=== PATIENT | male | born 1955 | race Caucasian/White ===

== ENCOUNTER 2018-11-02 11:46 | Day surgery (SDC) | payer OTHER ==
[~2018-11-02] VITALS: Ht 190.5 cm; Wt 296.0 kg
[~2018-11-02 11:46] MED LIST: ACET325 PO; AMLO5 PO; ASPI81CH PO; Colace100 MG PO; FAMO20 PO; Isosorbide Dini30 MG PO; METO100ER PO; Metformin HCl1000 MG PO; NITR.4SL SL; OMEP20ER; OXYC5 PO; Simvastatin20 MG PO; TANZEUM30 MG/0.5 SQ; TOUJEO SOL300 UNIT/1 SQ; Ventolin5 MG/1 ML INH; Zestril40 MG
[2018-11-02] MEDS ORDERED: TRULICITY0.75 MG/0. (12:11)
[2018-11-02] MEDS ORDERED: BASAGLAR K100 UNIT/1 (12:11)
== END 2018-11-02 13:54 | disposition home or self-care (01) ==
LOC: ORSCSDS 11:46
PROVIDERS: Internal Medicine Gastroenterology
PROC: 0DBL8ZX Excision of Transverse Colon, Via Natural or Artificial Opening Endoscopic, Diagnostic (ICD-10-PCS; principal; 2018-11-02 13:15)
PROC: 0DBH8ZX Excision of Cecum, Via Natural or Artificial Opening Endoscopic, Diagnostic (ICD-10-PCS; principal; 2018-11-02 13:15)
DX: Z12.11 Encounter for screening for malignant neoplasm of colon (principal); D12.3 Benign neoplasm of transverse colon; Z80.0 Family history of malignant neoplasm of digestive organs; I10 Essential (primary) hypertension; E11.9 Type 2 diabetes mellitus without complications; F17.210 Nicotine dependence, cigarettes, uncomplicated; E66.01 Morbid (severe) obesity due to excess calories; Z68.38 Body mass index [BMI] 38.0-38.9, adult; Z79.82 Long term (current) use of aspirin; Z79.84 Long term (current) use of oral hypoglycemic drugs; Z79.899 Other long term (current) drug therapy
CPT/HCPCS: 82947; 88305; J2704; J7120

== ENCOUNTER 2025-02-21 15:55 | Inpatient (IN) | payer OTHER ==
[2025-02-21] VITALS (15 sets, daily range): BP systolic 135–150; BP diastolic 77–129
[~2025-02-21] VITALS: Ht 190.5 cm; Wt 120.0 kg
[~2025-02-21 15:55] MED LIST changes: +BASAGLAR K100 UNIT/1; +Heparin Sodium,Porcine 5,000 UNIT/0.5 ML SDV SC ONE; +METF500 PO; +Magnesium Sulfate 500 MG / ML 2ML Vial IV ONE; -Metformin HCl1000 MG PO; -TOUJEO SOL300 UNIT/1 SQ; +TOUJEO SOL300 UNIT/2 SC; +TRULICITY0.75 MG/0.
[2025-02-21] MEDS ORDERED: Heparin Sodium 5000 Units/ML 1ML MDV IV ONE (16:10)
[2025-02-21] MEDS ORDERED: NS 250 ML IV ONE (16:17)
[2025-02-21] MEDS ORDERED: Nitroglycerin 2 MG/20 ML BTL ONE (16:17)
[2025-02-21] MEDS ORDERED: Verapamil HCL 2.5 MG/ML 2ML Injection ONE (16:17)
[2025-02-21] MEDS ORDERED: Heparin Sodium 1000 Units/ML 10ML MDV ONE ×2 (16:17→16:18)
[2025-02-21] MEDS ORDERED: NS 1,000 ML IV ONE ×2 (16:17→16:18)
[2025-02-21 16:20] LABS: Calcium, Ionized (POC) 1.10 mmol/L (1.10-1.46); Chloride (POC) 103 mmol/L (98-108); Creatinine (POC) 0.9 mg/dL (0.8-1.3); Glucose (ISTAT POC) 166 mg/dL (70-99); Hematocrit (POC) 51.0 % (41.0-53.0); Hemoglobin (POC) 17.3 g/dL (13.5-17.5); Potassium (POC) 4.1 mmol/L (3.5-5.5); Sodium (POC) 140 mmol/L (135-148); Total CO2 (POC) 24 mmol/L (21-32)
[2025-02-21 16:29] LABS: BASOPHILS ABSOLUTE AUTO 0.06 K/mm3 (0.00-0.23); BASOPHILS PERCENT AUTO 1 % (0-2); EOSINOPHILS ABSOLUTE AUTO 0.29 K/mm3 (0.00-0.68); EOSINOPHILS PERCENT AUTO 3 % (0-6); Hematocrit 49.5 % (37.0-53.0); Hemoglobin 17.8 g/dL (13.5-17.5); IMMATURE GRAN ABSOLUTE AUTO 0.03 K/mm3 (0.00-0.10); IMMATURE GRAN PERCENT AUTO 0 % (0-1); LYMPHOCYTES ABSOLUTE AUTO 2.49 K/mm3 (0.84-5.20); LYMPHOCYTES PERCENT AUTO 27 % (21-46); MONOCYTES ABSOLUTE AUTO 0.68 K/mm3 (0.16-1.47); MONOCYTES PERCENT AUTO 7 % (4-13); Mean Corpuscular HGB Conc 36.0 g/dL (31.5-36.5); Mean Corpuscular Volume 87 fL (80-100); NEUTROPHILS ABSOLUTE AUTO 5.85 K/mm3 (1.96-9.15); NEUTROPHILS PERCENT AUTO 62 % (41-73); NRBC ABSOLUTE 0.00 K/mm3 (0.00-0.02); NRBC Auto 0.0 /100 WBC (0.0-0.2); Platelet Count 146 K/mm3 (150-400); RDW Coefficient Variation 13.3 % (11.7-14.2); RDW Standard Deviation 42.4 fL (35.1-46.3)
[2025-02-21] MEDS ORDERED: Ondansetron HCl 2 MG / ML 2ML Vial IV PRN (16:50)
[2025-02-21] MEDS ORDERED: Midazolam HCl 1MG / ML 2ML Vial ONE (16:51)
[2025-02-21] MEDS ORDERED: FentaNYL Citrate 50 MCG/ML 2 ML Injection ONE (16:51)
[2025-02-21 17:01] LABS: Alanine Aminotransfer (ALT/SGP 39 U/L (12-78); Albumin, Blood 4.2 g/dL (3.4-5.0); Albumin/Globulin Ratio 1.2 (0.8-1.8); Anion Gap 10 mmol/L (3-11); Aspartate Aminotrans (AST/SGOT 34 U/L (12-37); Bilirubin, Total 0.6 mg/dL (0.1-1.0); Blood Urea Nitrogen 12 mg/dL (8-24); CHOL/HDL RATIO 4.3; CO2, Blood 25 mmol/L (21-32); Calcium, Blood 8.7 mg/dL (8.5-10.1); Chloride, Blood 105 mmol/L (98-108); Cholesterol 173 mg/dL (50-200); Creatinine, Blood 0.88 mg/dL (0.60-1.20); Globulin, Blood 3.4 g/dL (2.2-4.0); Glucose, Blood 182 mg/dL (70-99); HDL Cholesterol 40 mg/dL (>39); LDL/HDL RATIO Unable to Calculate; Low Density Lipoprotein Chol Unable to Calculate mg/dL (0-110); Potassium, Blood 3.4 mmol/L (3.5-5.5); Sodium, Blood 137 mmol/L (136-145); Total Protein, Blood 7.6 g/dL (6.4-8.2); Triglycerides 588 mg/dL (30-160); Very Low Density Lipoprot Chol Unable to Calculate mg/dL (6-32)
[2025-02-21 17:19] LABS: Magnesium, Blood 0.6 mg/dL (1.6-2.4)
[2025-02-21] MEDS ORDERED: NS 100 ML IV ONE (17:22)
[2025-02-21] MEDS ORDERED: NS 1,000 ML IV SCH ×2 (18:30)
--- NOTE | 2025-02-21 18:54 | NUR ---
ADMIT PT ARRIVED TO ICU 14 VIA BED. PT ALERT AND ORIENTED. L RADIAL SITE IS C/D/I, SOFT, NO HEMATOMA. L GROIN SITE IS C/D/I, SOFT AND NO HEMATOMA WELL, SM AMT OF BRUISING RIGHT UNDER PUNCTURE SITE. PT EDUCATED ON ACTIVITY RESTRICTIONS FOR HIS LEG AND WRIST. PT VERBALIZES UNDERSTANDING. WHILE LAYING FLAT ON RA, PT'S SPO2 87%, PLACED ON OXYGEN VIA NC AND HAD TO TITRATE UP TO 4L TO GET SPO2 ABOVE 90%. DR. CARDONA CAME TO THE BEDSIDE AND UPDATED PT.
[2025-02-21] MEDS ORDERED: FISH OIL 1,2001 EAC4 PO (20:52)
[2025-02-21] MEDS ORDERED: GENICIN500 M1 PO (20:53)
[2025-02-21] MEDS ORDERED: JARDIANCE25 MG PO (20:56)
[2025-02-21] MEDS ORDERED: OMEP20ER PO (20:57)
[2025-02-21] MEDS ORDERED: LOSA50 PO (20:59)
[2025-02-21] MEDS ORDERED: Insulin Human Lispro 100 Units/ML 3ML Syringe SC SCH (21:00)
[2025-02-21] MEDS ORDERED: BASAGLAR K100 UNIT/3 SC (21:00)
[2025-02-21] MEDS ORDERED: Insulin Glargine,Hum.Rec.Anlog 100 UNIT/ML 3MLSYR SC SCH (21:00)
[2025-02-22] VITALS (17 sets, daily range): BP systolic 108–141; BP diastolic 63–117
[2025-02-22 03:53] LABS: BASOPHILS ABSOLUTE AUTO 0.07 K/mm3 (0.00-0.23); BASOPHILS PERCENT AUTO 1 % (0-2); EOSINOPHILS ABSOLUTE AUTO 0.14 K/mm3 (0.00-0.68); EOSINOPHILS PERCENT AUTO 1 % (0-6); Hematocrit 46.4 % (37.0-53.0); Hemoglobin 16.6 g/dL (13.5-17.5); IMMATURE GRAN ABSOLUTE AUTO 0.04 K/mm3 (0.00-0.10); IMMATURE GRAN PERCENT AUTO 0 % (0-1); LYMPHOCYTES ABSOLUTE AUTO 1.79 K/mm3 (0.84-5.20); LYMPHOCYTES PERCENT AUTO 15 % (21-46); MONOCYTES ABSOLUTE AUTO 0.79 K/mm3 (0.16-1.47); MONOCYTES PERCENT AUTO 7 % (4-13); Mean Corpuscular HGB Conc 35.8 g/dL (31.5-36.5); Mean Corpuscular Volume 86 fL (80-100); NEUTROPHILS ABSOLUTE AUTO 8.94 K/mm3 (1.96-9.15); NEUTROPHILS PERCENT AUTO 76 % (41-73); NRBC ABSOLUTE 0.00 K/mm3 (0.00-0.02); NRBC Auto 0.0 /100 WBC (0.0-0.2); Platelet Count 138 K/mm3 (150-400); RDW Coefficient Variation 13.2 % (11.7-14.2); RDW Standard Deviation 41.1 fL (35.1-46.3)
[2025-02-22] MEDS ORDERED: Albuterol 2.5 MG/3 ML VIAL INH PRN (04:20)
[2025-02-22] MEDS ORDERED: Ipratropium/Albuterol SulF 2.5-0.5MG/3 ML Amp INH SCH (04:20)
--- NOTE | 2025-02-22 06:34 | NUR ---
SHIFT SUMMARY PATIENT ALERT AND ORIENTED X4 THROUGH THE NIGHT. WAS ORIGINALLY ON 2-3L NC WHILE LAYING FLAT AND SLEEPING TO MAINTAIN SP02 >93, AROUND APPROX 0300 OXYGEN DEMANDS STARTED INCREASING, PATIENT STATED HE FELT SOB. LUNG SOUNDS WITH AN EXPIRATORY WHEEZE BUT OTHERWISE CLEAR. OXYGEN INCREASED TO 9L VIA HI-FLOW NC, SP02 92%. CALLED HOSPITALIST, BNP, CHEST X-RAY, BREATHING TREATMENT AND CPAP ORDERED WELL FLUIDS STOPPED. ONCE X-RAY WAS DONE HOSPITALIST ORDERED LASIX TO BE GIVEN. PATIENT CURRENTLY WEARING CPAP SP02 97%. HR SR 79 WITH FREQUENT PVCs. BP STABLE, PATIENT STILL RATES CP 1/10 AND DESCRIBES IT AN ACHE. MORNING EKG DONE AND IN THE CHART. PATIENT ABLE TO USE URINAL. LEFT RADIAL AND RIGHT GROIN INCISION SITES WNL WITH DRESSINGS IN PLACE.
[2025-02-22 06:37] LABS: Alanine Aminotransfer (ALT/SGP 51.0 U/L (12-78); Albumin, Blood 3.6 g/dL (3.4-5.0); Albumin/Globulin Ratio 1.2 (0.8-1.8); Anion Gap 12.0 mmol/L (3-11); Aspartate Aminotrans (AST/SGOT 238.0 U/L (12-37); Bilirubin, Total 0.8 mg/dL (0.1-1.0); Blood Urea Nitrogen 9.0 mg/dL (8-24); CO2, Blood 22.0 mmol/L (21-32); Calcium, Blood 8.3 mg/dL (8.5-10.1); Chloride, Blood 108.0 mmol/L (98-108); Creatinine, Blood 0.62 mg/dL (0.60-1.20); Globulin, Blood 2.9 g/dL (2.2-4.0); Glucose, Blood 144.0 mg/dL (70-99); Magnesium, Blood 1.0 mg/dL (1.6-2.4); Potassium, Blood 3.4 mmol/L (3.5-5.5); Sodium, Blood 139.0 mmol/L (136-145); Total Protein, Blood 6.5 g/dL (6.4-8.2)
[2025-02-22] MEDS ORDERED: Magnesium Sulf 2 GM/Water 50ML 50 ML IV ONE (06:50)
--- NOTE | 2025-02-22 17:43 | NUR ---
SHIFT SUMMARY PT HAS BEEN ALERT AND ORIENTED THROUGHOUT THE SHIFT. HE DENIES CHEST PAIN. HE AMBULATED AROUND THE UNIT AND HAS BEEN UP TO THE CHAIR SEVERAL TIMES. HIS GROIN SITE AND RADIAL SITE ARE BOTH SOFT WITH NO HEMATOMAS. LUNGS ARE CLEAR, RA, SR. VOIDING USING THE URINAL. EATING ALL OF HIS MEALS.
[2025-02-23] VITALS: BP 97/71
[2025-02-23 03:40] LABS: BASOPHILS ABSOLUTE AUTO 0.05 K/mm3 (0.00-0.23); BASOPHILS PERCENT AUTO 0 % (0-2); EOSINOPHILS ABSOLUTE AUTO 0.10 K/mm3 (0.00-0.68); EOSINOPHILS PERCENT AUTO 1 % (0-6); Hematocrit 44.4 % (37.0-53.0); Hemoglobin 15.8 g/dL (13.5-17.5); IMMATURE GRAN ABSOLUTE AUTO 0.02 K/mm3 (0.00-0.10); IMMATURE GRAN PERCENT AUTO 0 % (0-1); LYMPHOCYTES ABSOLUTE AUTO 1.43 K/mm3 (0.84-5.20); LYMPHOCYTES PERCENT AUTO 13 % (21-46); MONOCYTES ABSOLUTE AUTO 0.85 K/mm3 (0.16-1.47); MONOCYTES PERCENT AUTO 7 % (4-13); Mean Corpuscular HGB Conc 35.6 g/dL (31.5-36.5); Mean Corpuscular Volume 87 fL (80-100); NEUTROPHILS ABSOLUTE AUTO 8.98 K/mm3 (1.96-9.15); NEUTROPHILS PERCENT AUTO 79 % (41-73); NRBC ABSOLUTE 0.00 K/mm3 (0.00-0.02); NRBC Auto 0.0 /100 WBC (0.0-0.2); Platelet Count 109 K/mm3 (150-400); RDW Coefficient Variation 13.1 % (11.7-14.2); RDW Standard Deviation 41.8 fL (35.1-46.3)
[2025-02-23 03:59] LABS: Alanine Aminotransfer (ALT/SGP 38.0 U/L (12-78); Albumin, Blood 3.6 g/dL (3.4-5.0); Albumin/Globulin Ratio 1.2 (0.8-1.8); Anion Gap 9.0 mmol/L (3-11); Aspartate Aminotrans (AST/SGOT 99.0 U/L (12-37); Bilirubin, Total 1.3 mg/dL (0.1-1.0); Blood Urea Nitrogen 11.0 mg/dL (8-24); CO2, Blood 26.0 mmol/L (21-32); Calcium, Blood 8.1 mg/dL (8.5-10.1); Chloride, Blood 106.0 mmol/L (98-108); Creatinine, Blood 0.69 mg/dL (0.60-1.20); Globulin, Blood 3.0 g/dL (2.2-4.0); Glucose, Blood 139.0 mg/dL (70-99); Magnesium, Blood 1.6 mg/dL (1.6-2.4); Potassium, Blood 3.5 mmol/L (3.5-5.5); Sodium, Blood 137.0 mmol/L (136-145); Total Protein, Blood 6.6 g/dL (6.4-8.2)
[2025-02-23 04:00] VITALS: BP 141/83
--- NOTE | 2025-02-23 05:57 | NUR ---
SHIFT SUMMARY A/O X4, ANSWERS APPROP, ABLE TO MAKE NEEDS KNOWN, OOB FOR TOILETING WITH ONLY SB ASSIST WITH LINES. SINUS RATE 80'S TO 100'S, BP STABLE, DENIED CHEST PAIN OR DISCOMFORT T/O NIGHT, ANXIOUS TO GO HOME. RIGHT GROIN AND LEFT RADIAL CATH SITES BENIGN, DRSGS DRY AND INTACT. NC AT 5 L WHILE SLEEPING TO KEEP O2SAT>94%. WILL UPDATE DAY RN WITH ALL OUTSTANDING ISSUES AND PROBLEMS TO DATE.
[2025-02-23 07:58] VITALS: BP 132/87
--- NOTE | 2025-02-23 09:29 | NUR ---
AM NOTE... ASSUMED CARE OF PT AT 0700, PT IS A&Ox4 AND IND IN THE ROOM. PT IS IN SR IN THE 80'S BP STABLE. PT DENIES CHEST PAIN/PRESSURE OR SOB. PT USES 2-5L NC WHILE SLEEPING PER NOC SHIFT RN REPORT. PT'S LEFT RADIAL AND RIGHT GROIN SITES ARE STABLE. PLANS TO D/C HOME TODAY.
[2025-02-23 11:36] VITALS: BP 123/81
[2025-02-23] MEDS ORDERED: CLOP75 PO (13:22)
[2025-02-23] MEDS ORDERED: MAGNESIUM OXID500 MG PO (13:23)
--- NOTE | 2025-02-23 14:15 | NUR ---
DISCHARGE SUMMARY: THROUGHOUT MORNING, PATIENT DENIED CHEST PAIN, SHORTNESS OF BREATH OR OTHER CONCERNING SIGNS OR SYMPTOMS. PATIENT DENIED DISCOMFORT. PATIENT TOLERATING PO INTAKE WITHOUT NAUSEA. PATIENT ACTIVE IN THE ROOM. NO SHORTNESS OF BREATH AND/OR DIZZINESS WITH AMBULATION. VITALS STABLE WITH SBP 120-140S. MAPS >65. HR IN THE 70-80'S. PER CARDIOLOGY AND HOSPITALIST, PATIENT READY FOR DISCHARGE. DISCHARGE RX FAXED TO [facility] PER PATIENT REQUEST. DISCHARGE EDUCATION AND INSTRUCTIONS PROVIDED TO THE PATIENT. ALL QUESTIONS AND CONCERNS ADDRESSED. STENT CARD MISSING FROM CHART AND ROOM. DISCUSSED WITH HEART CENTER. A NEW CARD (WITHOUT LOT NUMBER) WAS CREATED FOR THE PATIENT AND PROVIDED TO THE PATIENT. PATIENT REFUSED WHEELCHAIR ESCORT. PATIENT DISCHARGED WITH BROTHER AND FRIEND. PATIENT STEADY ON HIS FEET. PATIENT STABLE AT TIME OF DISCHARGE.
== END 2025-02-23 14:20 | disposition home or self-care (01) | DRG 322 ==
LOC: ER 15:55 → ICUE 16:04
PROVIDERS: Emergency Medicine; ADMIT Family Medicine
PROC: 027034Z Dilation of Coronary Artery, One Artery with Drug-eluting Intraluminal Device, Percutaneous Approach (ICD-10-PCS; principal; 2025-02-21)
PROC: B2111ZZ Fluoroscopy of Multiple Coronary Arteries using Low Osmolar Contrast (ICD-10-PCS; 2025-02-21)
PROC: B2131ZZ Fluoroscopy of Multiple Coronary Artery Bypass Grafts using Low Osmolar Contrast (ICD-10-PCS; 2025-02-21)
PROC: B2181ZZ Fluoroscopy of Left Internal Mammary Bypass Graft using Low Osmolar Contrast (ICD-10-PCS; 2025-02-21)
DX: I21.29 ST elevation (STEMI) myocardial infarction involving other sites (principal); I25.810 Atherosclerosis of coronary artery bypass graft(s) without angina pectoris; I25.10 Atherosclerotic heart disease of native coronary artery without angina pectoris; E11.9 Type 2 diabetes mellitus without complications; K21.9 Gastro-esophageal reflux disease without esophagitis; E78.5 Hyperlipidemia, unspecified; E87.6 Hypokalemia; E83.42 Hypomagnesemia; I10 Essential (primary) hypertension; E66.9 Obesity, unspecified; Z79.82 Long term (current) use of aspirin; Z79.4 Long term (current) use of insulin; Z79.84 Long term (current) use of oral hypoglycemic drugs; Z79.85 Long-term (current) use of injectable non-insulin antidiabetic drugs; Z72.0 Tobacco use; I25.2 Old myocardial infarction; Z68.34 Body mass index [BMI] 34.0-34.9, adult
CPT/HCPCS: 36415; 71045; 76937; 80047; 80053; 80061; 82947; 83735; 83880; 84484; 85014; 85025; 85347; 86850; 86900; 86901; 93005; 93010; 93455; 94640; 94660; 94664; 94762; 99152; 99153; 99285-25; A9270; C1725; C1760; C1769; C1874; C1887; C1894; C8929; C9606; J1644; J1938; J2250; J3010; J3246; J3475; J7030; J7050; Q9957; Q9967

== ENCOUNTER 2025-02-26 18:48 | Inpatient (IN) | payer OTHER ==
[~2025-02-26] VITALS: Ht 190.5 cm; Wt 118.8 kg
[~2025-02-26 18:48] MED LIST changes: +BASAGLAR K100 UNIT/3 SC; +CLOP75 PO; +FISH OIL 1,2001 EAC4 PO; +GENICIN500 M1 PO; -Heparin Sodium,Porcine 5,000 UNIT/0.5 ML SDV SC ONE; +JARDIANCE25 MG PO; +LOSA50 PO; +MAGNESIUM OXID500 MG PO; -Magnesium Sulfate 500 MG / ML 2ML Vial IV ONE; +OMEP20ER PO
[2025-02-26 19:24] LABS: BASOPHILS ABSOLUTE AUTO 0.05 K/mm3 (0.00-0.23); BASOPHILS PERCENT AUTO 0 % (0-2); EOSINOPHILS ABSOLUTE AUTO 0.50 K/mm3 (0.00-0.68); EOSINOPHILS PERCENT AUTO 5 % (0-6); Hematocrit 50.8 % (37.0-53.0); Hemoglobin 17.6 g/dL (13.5-17.5); IMMATURE GRAN ABSOLUTE AUTO 0.04 K/mm3 (0.00-0.10); IMMATURE GRAN PERCENT AUTO 0 % (0-1); LYMPHOCYTES ABSOLUTE AUTO 1.61 K/mm3 (0.84-5.20); LYMPHOCYTES PERCENT AUTO 15 % (21-46); MONOCYTES ABSOLUTE AUTO 0.58 K/mm3 (0.16-1.47); MONOCYTES PERCENT AUTO 5 % (4-13); Mean Corpuscular HGB Conc 34.6 g/dL (31.5-36.5); Mean Corpuscular Volume 89 fL (80-100); NEUTROPHILS ABSOLUTE AUTO 8.35 K/mm3 (1.96-9.15); NEUTROPHILS PERCENT AUTO 75 % (41-73); NRBC ABSOLUTE 0.00 K/mm3 (0.00-0.02); NRBC Auto 0.0 /100 WBC (0.0-0.2); Platelet Count 186 K/mm3 (150-400); RDW Coefficient Variation 13.2 % (11.7-14.2); RDW Standard Deviation 42.9 fL (35.1-46.3)
[2025-02-26 19:34] LABS: Alanine Aminotransfer (ALT/SGP 37.0 U/L (12-78); Albumin, Blood 3.9 g/dL (3.4-5.0); Albumin/Globulin Ratio 0.9 (0.8-1.8); Anion Gap 8.0 mmol/L (3-11); Aspartate Aminotrans (AST/SGOT 55.0 U/L (12-37); Bilirubin, Total 0.8 mg/dL (0.1-1.0); Blood Urea Nitrogen 13.0 mg/dL (8-24); CO2, Blood 23.0 mmol/L (21-32); Calcium, Blood 9.5 mg/dL (8.5-10.1); Chloride, Blood 107.0 mmol/L (98-108); Creatinine, Blood 0.78 mg/dL (0.60-1.20); Globulin, Blood 4.4 g/dL (2.2-4.0); Glucose, Blood 243.0 mg/dL (70-99); Potassium, Blood 5.0 mmol/L (3.5-5.5); Sodium, Blood 133.0 mmol/L (136-145); Total Protein, Blood 8.3 g/dL (6.4-8.2)
[2025-02-26] MEDS ORDERED: Morphine Sulfate 4 MG/1 ML Injection IV ONE ×2 (20:45→23:00)
[2025-02-26] MEDS ORDERED: Ondansetron HCl 2 MG / ML 2ML Vial IV PRN (23:35)
[2025-02-26] MEDS ORDERED: Morphine Sulfate 4 MG/1 ML Injection IV PRN (23:35)
[2025-02-26] MEDS ORDERED: Naloxone HCl 0.4MG / ML 1ML Vial IV PRN (23:35)
[2025-02-27] VITALS (32 sets, daily range): BP systolic 103–176; BP diastolic 73–115
[2025-02-27 01:03] LABS: Anti-Xa UFH, PHA Monitoring <0.10 IU/mL; Prothrombin Time Results 11.3 Sec (9.7-11.5)
[2025-02-27] MEDS ORDERED: Dose Adjust by Pharmacy XX STA ×2 (01:16→09:07)
[2025-02-27] MEDS ORDERED: Heparin Sodium,Porcine/0.5 NS 500 ML IV SCH (01:20)
[2025-02-27] MEDS ORDERED: Heparin Sodium 5000 Units/ML 1ML MDV IV ONE (01:20)
[2025-02-27 04:33] LABS: BASOPHILS ABSOLUTE AUTO 0.06 K/mm3 (0.00-0.23); BASOPHILS PERCENT AUTO 1 % (0-2); EOSINOPHILS ABSOLUTE AUTO 0.42 K/mm3 (0.00-0.68); EOSINOPHILS PERCENT AUTO 4 % (0-6); Hematocrit 48.0 % (37.0-53.0); Hemoglobin 16.9 g/dL (13.5-17.5); IMMATURE GRAN ABSOLUTE AUTO 0.04 K/mm3 (0.00-0.10); IMMATURE GRAN PERCENT AUTO 0 % (0-1); LYMPHOCYTES ABSOLUTE AUTO 1.69 K/mm3 (0.84-5.20); LYMPHOCYTES PERCENT AUTO 17 % (21-46); MONOCYTES ABSOLUTE AUTO 0.71 K/mm3 (0.16-1.47); MONOCYTES PERCENT AUTO 7 % (4-13); Mean Corpuscular HGB Conc 35.2 g/dL (31.5-36.5); Mean Corpuscular Volume 89 fL (80-100); NEUTROPHILS ABSOLUTE AUTO 7.22 K/mm3 (1.96-9.15); NEUTROPHILS PERCENT AUTO 71 % (41-73); NRBC ABSOLUTE 0.00 K/mm3 (0.00-0.02); NRBC Auto 0.0 /100 WBC (0.0-0.2); Platelet Count 154 K/mm3 (150-400); RDW Coefficient Variation 13.2 % (11.7-14.2); RDW Standard Deviation 43.3 fL (35.1-46.3)
[2025-02-27 04:55] LABS: Magnesium, Blood 1.6 mg/dL (1.6-2.4)
[2025-02-27 04:56] LABS: Alanine Aminotransfer (ALT/SGP 34.0 U/L (12-78); Albumin, Blood 3.6 g/dL (3.4-5.0); Albumin/Globulin Ratio 1.0 (0.8-1.8); Anion Gap 9.0 mmol/L (3-11); Aspartate Aminotrans (AST/SGOT 103.0 U/L (12-37); Bilirubin, Total 0.6 mg/dL (0.1-1.0); Blood Urea Nitrogen 13.0 mg/dL (8-24); CO2, Blood 24.0 mmol/L (21-32); Calcium, Blood 9.3 mg/dL (8.5-10.1); Chloride, Blood 110.0 mmol/L (98-108); Creatinine, Blood 0.71 mg/dL (0.60-1.20); Globulin, Blood 3.5 g/dL (2.2-4.0); Glucose, Blood 200.0 mg/dL (70-99); Potassium, Blood 4.2 mmol/L (3.5-5.5); Sodium, Blood 139.0 mmol/L (136-145); Total Protein, Blood 7.1 g/dL (6.4-8.2)
--- NOTE | 2025-02-27 05:39 | NUR ---
PT HAVING INCREASED CHEST PAIN/PRESSURE AND DYSPNEA. PT IS BECOMING MORE DIAPHORETIC. PT RATED CHEST PAIN 7/10. NTG GIVEN SL X2. MINOR IMPROVEMENT TO CHEST PRESSURE, DYSPNEA STILL PRESENT. O2 SAT DECREASING TO 88-89% ON 8L BY OXIMASK, O2 INCREASED TO 11L SATING 92%. 4MG MORPHINE GIVEN FOR CHEST PAIN. CHEST PAIN IMPROVED TO 2/10 AND DYSPNEA IMPROVING. REPEAT EKG DONE. LUNG SOUNDS IN BASES CHANGED FROM DIM TO DIM AND WHEEZING. CALL PLACED TO DR. AMADOR REGARDING PT CHEST PAIN AND INCREASED O2 DEMAND. DR AMADOR TO BEDSIDE TO EVAL PAIN. NO NEW ORDERS, CONTINUE TO MONITOR.
[2025-02-27] MEDS ORDERED: Verapamil HCL 2.5 MG/ML 2ML Injection ONE (09:26)
[2025-02-27] MEDS ORDERED: Heparin Sodium 1000 Units/ML 10ML MDV ONE (09:26)
[2025-02-27] MEDS ORDERED: NS 250 ML IV ONE (09:26)
[2025-02-27] MEDS ORDERED: NS 1,000 ML IV ONE ×2 (09:26→09:34)
[2025-02-27] MEDS ORDERED: Nitroglycerin 2 MG/20 ML BTL ONE (09:27)
--- NOTE | 2025-02-27 09:43 | NUR ---
am note this rn assumed care at 0700. vital signs stable. tele sinus rhythm 80s. spo2 >90% on 8l oxymask and this rn has titrated down to 2l osymask with spo2 >90%. patient is alert and oriented x4. neuro is intact. perrla. patient is able to make needs known and uses call light appropriately. patient denies pain or shortness of breath. patient reports chest pain rated at 2 and describes it as a "constant pressure". patient medicated with morphine per emar and upon reassessment patient denies having chest pain/pressure. patient lung sounds clear upper lobes and fine dim crackles in bilateral lower lobes. see shift assessment for further detials. dreiling in to see patient at 0800 and plan is for patient to go back to microbiology lab assistant for angio this morning.
--- NOTE | 2025-02-27 09:53 | NUR ---
update patient left for geophysical laboratory supervisor at [phone]
[2025-02-27] MEDS ORDERED: FentaNYL Citrate 50 MCG/ML 2 ML Injection ONE (09:58)
[2025-02-27] MEDS ORDERED: Midazolam HCl 1MG / ML 2ML Vial ONE (09:59)
[2025-02-27] MEDS ORDERED: NS 1,000 ML IV SCH (11:20)
--- NOTE | 2025-02-27 12:09 | NUR ---
update patient returned from sleep lab technologist approx 1115. vital signs stable upon return and tele sinus rhythm. patient has a right radail site with tr band in place at 1100 with 11cc in it and will start to delfate air 3 hours post band placement. right radail site is soft nontender, no bleeding or hematoma present. patient educated on not using that right arm and to pretend it is broken. patient verbalized understanding to this rn. patient had an episode of vomitting clear lquid vomit while this rn was in the room. heparin stopped and patient started prasugrel and received loading dose in sleep lab technologist per report from sleep lab technologist nurse.
[2025-02-27] MEDS ORDERED: Labetalol HCL 5 MG/ML 4ML Injection (Single Dose) ONE (15:04)
[2025-02-27] MEDS ORDERED: Labetalol HCL 5 MG/ML 4ML Injection (Single Dose) IV ONE ×2 (15:05→15:20)
--- NOTE | 2025-02-27 16:01 | NUR ---
rapid response at 1455- this rn in room doing iv and patient complaining of difficulty breathing and this rn increased oxygen to 10l high flow nasal cannula and increase head of bed. patient spo2 remains in the mid 80s and working to breath. this rn went out of room to get oxymask and additional help to place iv. oxymask in place and at 10l. allie rn in room placing iv while this rn went to get morphine and zofran. sarai with respiratory care in the hallway and this rn informed him of patient resirations in the high 20s, diaphoretic, and dusky face, and that patient appears in respiratory distress. sarai in the room manging oxygenation while this rn pulled medications. see respiratory care charting for detials in oxygenation. this rn was called by tele to inform of rhythm changes on tele, and this rn called janessa rn to call dr. kenney about rhythm changes and getting an ekg at this time. rapid response called at approx 1500. md kenney in the room at 1500. bipap brought into the room and while beging set up 4mg iv zofran given and then 4mg iv morphine given. patient placed on bipap and respirations improved and oxygenating into the mid 90s. blood pressure hypertesnive 176/115 md kenney order 40mg of lasix iv and 5mg of iv labetalol. blood pressure improved tO 139/96. after 5 mins patient blood pressure increase to 141/104 and additional dose of 5mg iv labetalol given. blood pressure improved and systolic in the 120-130s now. patient bipap settings 14/7 fio2 80% and respirations 20s. during this event patient heart rate increased to 140s-150s and was in afib. patient is now in sinus rhythm 90s. md rose notified by this rn. patient coloration is pink and pale and is on bipap resting at this time.
--- NOTE | 2025-02-27 16:20 | NUR ---
Upon responding to a rapid response, I went to the patient's room. I touched base with his brother who was trapped in the corner of the patient's room while life saving measures were being taken. The room was packed with the clinical team who worked briliantly and stabilized the patient. I performed some debriefing work with the brother as he talked through the events and how he was coping with it all. As I provided therapeutic listening and anxiety containment work with him he stated that because the patient is doing well that he would head home. I walked him to the parking lot and he continued talking about their lives growing up and about how thakful that he is that the patient is doing much better. I will continue to remain available.
[2025-02-27] MEDS ORDERED: Insulin Regular 100 UNIT/ML 10ML Vial SC SCH ×2 (16:30)
--- NOTE | 2025-02-27 16:42 | NUR ---
TR BAND tr band is fully deflated at 1640 and will remove in an hour. right radial site is soft nontender and no hematoma or bleeding
--- NOTE | 2025-02-27 17:46 | NUR ---
shift summary see previous notes for further detials. vitals remain stable. tele sinus rhythyn. no acute changes since previous notes
[2025-02-28] VITALS (11 sets, daily range): BP systolic 109–134; BP diastolic 62–91
[2025-02-28 04:42] LABS: BASOPHILS ABSOLUTE AUTO 0.06 K/mm3 (0.00-0.23); BASOPHILS PERCENT AUTO 1 % (0-2); EOSINOPHILS ABSOLUTE AUTO 0.20 K/mm3 (0.00-0.68); EOSINOPHILS PERCENT AUTO 2 % (0-6); Hematocrit 45.3 % (37.0-53.0); Hemoglobin 15.6 g/dL (13.5-17.5); IMMATURE GRAN ABSOLUTE AUTO 0.04 K/mm3 (0.00-0.10); IMMATURE GRAN PERCENT AUTO 0 % (0-1); LYMPHOCYTES ABSOLUTE AUTO 1.59 K/mm3 (0.84-5.20); LYMPHOCYTES PERCENT AUTO 15 % (21-46); MONOCYTES ABSOLUTE AUTO 0.99 K/mm3 (0.16-1.47); MONOCYTES PERCENT AUTO 9 % (4-13); Mean Corpuscular HGB Conc 34.4 g/dL (31.5-36.5); Mean Corpuscular Volume 90 fL (80-100); NEUTROPHILS ABSOLUTE AUTO 7.91 K/mm3 (1.96-9.15); NEUTROPHILS PERCENT AUTO 73 % (41-73); NRBC ABSOLUTE 0.00 K/mm3 (0.00-0.02); NRBC Auto 0.0 /100 WBC (0.0-0.2); Platelet Count 155 K/mm3 (150-400); RDW Coefficient Variation 13.4 % (11.7-14.2); RDW Standard Deviation 44.5 fL (35.1-46.3)
[2025-02-28 05:04] LABS: Magnesium, Blood 1.6 mg/dL (1.6-2.4)
[2025-02-28 05:05] LABS: Alanine Aminotransfer (ALT/SGP 42.0 U/L (12-78); Albumin, Blood 3.3 g/dL (3.4-5.0); Albumin/Globulin Ratio 0.9 (0.8-1.8); Anion Gap 6.0 mmol/L (3-11); Aspartate Aminotrans (AST/SGOT 141.0 U/L (12-37); Bilirubin, Total 0.8 mg/dL (0.1-1.0); Blood Urea Nitrogen 19.0 mg/dL (8-24); CO2, Blood 30.0 mmol/L (21-32); Calcium, Blood 8.8 mg/dL (8.5-10.1); Chloride, Blood 106.0 mmol/L (98-108); Creatinine, Blood 0.75 mg/dL (0.60-1.20); Globulin, Blood 3.5 g/dL (2.2-4.0); Glucose, Blood 149.0 mg/dL (70-99); Potassium, Blood 4.1 mmol/L (3.5-5.5); Sodium, Blood 138.0 mmol/L (136-145); Total Protein, Blood 6.8 g/dL (6.4-8.2)
--- NOTE | 2025-02-28 06:34 | NUR ---
PT STABLE THROUGHOUT SHIFT. NO C/O CHEST PAIN OR DYSPNEA. PT ON 4L O2 BY NC AND SATING WELL. VITAL SIGNS WNL. PT HAD GOOD URINARY OUTPUT. RT RADIAL SITE REMAINS CLOSED AND COVERED WITH TEGADERM W/O BRUISING OR HEMATOMA. GOOD PULSE AT RT RADIAL SITE.
[2025-02-28] MEDS ORDERED: Heparin Sodium,Porcine 5,000 UNIT/0.5 ML SDV SC SCH (08:30)
--- NOTE | 2025-02-28 18:36 | NUR ---
SHIFT SUMMARY: PT A&OX4. FOLLOWS COMMANDS AND MAKES NEEDS KNOWN TO STAFF. PT USED URINAL AT BEDSIDE BUT WAS ABLE TO GET UP AND TAKE A SHOWER WITHOUT ANY COMPLAINTS OF CP, PRESSURE, TIGHTNESS OR SOB. RADIAL SITE REDRESSED WITH A TEGADERM. SITE WNL.PT REMAINS SINUS ON THE MONITOR. VSS. MAP >65. PT TITRATED TO RA FROM 4LNC THIS AM AND HAS MAINTAINED O2 SATS >95% ALL DAY. NO SIGNIFICANT EVENTS HAPPENED DURING THIS SHIFT. WILL CONTINUE TO CARE FOR PT TILL END OF SHIFT.
[2025-03-01] VITALS (19 sets, daily range): BP systolic 104–138; BP diastolic 53–105
--- NOTE | 2025-03-01 04:26 | NUR ---
SHIFT SUMMARY. SHIFT HAS BEEN UNREMARKABLE. PT AOX4, PLEASANT, COOPERATIVE, ABLE TO MAKE NEEDS KNOWN. HAS BEEN ABLE TO REST COMFORTABLY THROUGHOUT MOST OF SHIFT. HAS DENIED PAIN THROUGHOUT SHIFT. VITALS STABLE. HAS CONTINUED TO RUN SINUS ON TELE. CALLS APPROPRIATELY FOR ASSISTANCE W/URINAL AND AMBULATION TO BATHROOM. RWR SITE REMAINS C/D/I W/ TEGADERM IN PLACE. BED LOCKED IN LOWEST POSITION. CALL LIGHT LEFT WITHIN REACH. CONTINUING TO MONITOR.
--- NOTE | 2025-03-01 06:28 | NUR ---
@ 0606, PT HR BEGAN TO RAPIDLY INCREASE TO 140s BEFORE 160s. PT ASYMPTOMATIC AT THE TIME, BLOOD PRESSURE 119/85 MAP OF 97. DENIES CHEST PAIN/PRESSURE, NAUSEA, DIZZINESS, ETC. EKG PERFORMED. REVIEWED W/ DR. AMADOR AND [facility] [employer]. APPEARS TO HAVE CONVERTED TO AFIB/AFLUTTER. HR HAS SINCE COME DOWN TO MAINTAIN IN THE 110s-130s RANGE. DR. AMADOR ORDERED 5 MG IV LOPRESSOR NOW FOR MANAGEMENT. ORDER INPUT, AWAITING VERIFICATION.
[2025-03-01] MEDS ORDERED: Metoprolol Tartrate 1 MG/ML 5 ML VIAL IV ONE (06:30)
[2025-03-01 06:50] LABS: BASOPHILS ABSOLUTE AUTO 0.05 K/mm3 (0.00-0.23); BASOPHILS PERCENT AUTO 1 % (0-2); EOSINOPHILS ABSOLUTE AUTO 0.21 K/mm3 (0.00-0.68); EOSINOPHILS PERCENT AUTO 2 % (0-6); Hematocrit 45.1 % (37.0-53.0); Hemoglobin 15.8 g/dL (13.5-17.5); IMMATURE GRAN ABSOLUTE AUTO 0.03 K/mm3 (0.00-0.10); IMMATURE GRAN PERCENT AUTO 0 % (0-1); LYMPHOCYTES ABSOLUTE AUTO 1.52 K/mm3 (0.84-5.20); LYMPHOCYTES PERCENT AUTO 17 % (21-46); MONOCYTES ABSOLUTE AUTO 0.83 K/mm3 (0.16-1.47); MONOCYTES PERCENT AUTO 9 % (4-13); Mean Corpuscular HGB Conc 35.0 g/dL (31.5-36.5); Mean Corpuscular Volume 88 fL (80-100); NEUTROPHILS ABSOLUTE AUTO 6.16 K/mm3 (1.96-9.15); NEUTROPHILS PERCENT AUTO 70 % (41-73); NRBC ABSOLUTE 0.00 K/mm3 (0.00-0.02); NRBC Auto 0.0 /100 WBC (0.0-0.2); Platelet Count 138 K/mm3 (150-400); RDW Coefficient Variation 12.9 % (11.7-14.2); RDW Standard Deviation 41.9 fL (35.1-46.3)
[2025-03-01 07:31] LABS: Anion Gap 11.0 mmol/L (3-11); Blood Urea Nitrogen 16.0 mg/dL (8-24); CO2, Blood 25.0 mmol/L (21-32); Calcium, Blood 8.7 mg/dL (8.5-10.1); Chloride, Blood 102.0 mmol/L (98-108); Creatinine, Blood 0.65 mg/dL (0.60-1.20); Glucose, Blood 170.0 mg/dL (70-99); Magnesium, Blood 1.7 mg/dL (1.6-2.4); Potassium, Blood 3.8 mmol/L (3.5-5.5); Sodium, Blood 134.0 mmol/L (136-145)
--- NOTE | 2025-03-01 09:10 | NUR ---
DR QUINTEROS FROM CARDIOLOGY IN ROOM TO ASSESS PATIENT. UPDATED HER THAT PATIENT WENT INTO AFIB APPROX 0600 TODAY, HOSPITALISTS WAS NOTIFIED. EKG SHOWN TO DR QUINTEROS. V/O FOR DIGOXIN 0.25MG IV SLOW PUSH X1 AND REPEAT IN 6 HOURS (HOLD FOR HR LESS THAN 60). DR SANDOVAL TO ROOM SHORTLY AFTERWARDS. PT MADE NPO AT THIS TIME. WILL START HEPARIN GTT, POSSIBLE CARDIOVERSION LATER TODAY. PATIENT DENIES CP, SOB, OR NAUSEA.
[2025-03-01 10:30] LABS: Anti-Xa UFH, PHA Monitoring <0.10 IU/mL; Prothrombin Time Results 12.3 Sec (9.7-11.5)
[2025-03-01] MEDS ORDERED: Dose Adjust by Pharmacy XX STA (10:48)
[2025-03-01] MEDS ORDERED: Heparin Sodium,Porcine/0.5 NS 500 ML IV SCH (10:50)
--- NOTE | 2025-03-01 12:00 | NUR ---
DR QUINTEROS BACK TO ROOM TO DISCUSS CARDIOVERSION WITH PATIENT. PATIENT AGREEABLE. PLAN TO CARDIOVERT PATIENT AROUND 1700 TODAY WHEN SKINNING MACHINE FEEDER AVAILABLE. REMAINS IN AFIB 110-130'S. HEPARIN INFUSING PER EMAR. DENIES SYMPTOMS. PATIENT KEPT NPO AT THIS TIME.
[2025-03-01] MEDS ORDERED: Magnesium Sulf 2 GM/Water 50ML 50 ML IV ONE (12:25)
[2025-03-01] MEDS ORDERED: FentaNYL Citrate 50 MCG/ML 2 ML Injection IV SCH (16:20)
[2025-03-01] MEDS ORDERED: Flumazenil 0.1 MG / ML 5ML Vial IV SCH (16:20)
[2025-03-01] MEDS ORDERED: Midazolam HCl 1MG / ML 2ML Vial IV SCH (16:20)
[2025-03-01] MEDS ORDERED: Naloxone HCl 0.4MG / ML 1ML Vial IV SCH (16:20)
[2025-03-01] MEDS ORDERED: NS 250 ML IV PRN (16:25)
--- NOTE | 2025-03-01 17:08 | NUR ---
PROCEDURE NOTE PATIENT SET UP FOR SYNCHRONIZED CARDIOVERSION. THIS RN (PRIMARY), AUBREE RN, OSVALDO RT, AND DR QUINTEROS IN ROOM. PATIENT ON SUPPLEMENTAL O2 WITH CO2 MONITORING. [address], DEFIB PADS IN PLACE, AMBU BAG AT BEDSIDE, SUCTION SET UP AND READY. NS INFUSING TKO. CONSENT SIGNED BY PROVIDER AND PATIENT, TIME OUT PERFORMED. PATIENT ADEQUATELY SEDATED AND TREATED FOR PAIN WITH TOTAL OF 3MG VERSED IVP AND 75MCG FENTANYL IVP. DEFIBRILLATOR SYNCHRONIZED AND SET TO 200J PER ORDER. PATIENT CLEARED AND SYNCHRONIZED CARDIOVERSION PERFORMED. EKG DONE AND PATIENT NOTED TO BE IN SR AT RATE OF 108BPM. SUPPORTIVE CARE PROVIDED PATIENT COMES OUT OF SEDATION. VSS.
--- NOTE | 2025-03-01 17:30 | NUR ---
SHIFT SUMMARY PATIENT WAS IN AFIB SINCE 0600 THIS MORING. CARDIOLOGY ROUNDED THIS MORNING. STARTED HEPARIN DRIP PER EMAR. PATIENT KEPT NPO. CARDIOVERSION DONE AT APPROX 1700. PATIENT RECOVERING NOW. THIS RN AT BEDSIDE. VSS. LS CTA. PATIENT ALERT AND FOLLOWING COMMANDS. NO DISTRESS NOTED. SR ON MONITOR AT 99 BPM. BIOX 95% ON 2L/MIN NC.
[2025-03-02 03:47] VITALS: BP 118/77
--- NOTE | 2025-03-02 04:22 | NUR ---
SHIFT SUMMARY. SHIFT HAS GONE WELL OVERALL. PT AOX4, PLEASANT, COOPERATIVE, ABLE TO MAKE NEEDS KNOWN. ABLE TO REST COMFORTABLY THROUGHOUT MOST OF SHIFT. VITALS HAVE REMAINED STABLE. HAS CONTINUED TO RUN SINUS THROUGHOUT SHIFT WITH RATE SETTLING IN THE 80s-100s RANGE PRIMARILY OVERNIGHT. HAS DENIED PAIN THROUGHOUT SHIFT. URINE OUTPUT CONSISTENT, CHARTED APPROPRIATELY. HAS REMAINED ON ROOM AIR THROUGHOUT SHIFT. BED LOCKED IN LOWEST POSITION. CALL LIGHT LEFT WITHIN REACH. CONTINUING TO MONITOR.
[2025-03-02 04:24] LABS: BASOPHILS ABSOLUTE AUTO 0.06 K/mm3 (0.00-0.23); BASOPHILS PERCENT AUTO 1 % (0-2); EOSINOPHILS ABSOLUTE AUTO 0.20 K/mm3 (0.00-0.68); EOSINOPHILS PERCENT AUTO 2 % (0-6); Hematocrit 44.2 % (37.0-53.0); Hemoglobin 15.2 g/dL (13.5-17.5); IMMATURE GRAN ABSOLUTE AUTO 0.01 K/mm3 (0.00-0.10); IMMATURE GRAN PERCENT AUTO 0 % (0-1); LYMPHOCYTES ABSOLUTE AUTO 1.51 K/mm3 (0.84-5.20); LYMPHOCYTES PERCENT AUTO 18 % (21-46); MONOCYTES ABSOLUTE AUTO 0.88 K/mm3 (0.16-1.47); MONOCYTES PERCENT AUTO 11 % (4-13); Mean Corpuscular HGB Conc 34.4 g/dL (31.5-36.5); Mean Corpuscular Volume 88 fL (80-100); NEUTROPHILS ABSOLUTE AUTO 5.66 K/mm3 (1.96-9.15); NEUTROPHILS PERCENT AUTO 68 % (41-73); NRBC ABSOLUTE 0.00 K/mm3 (0.00-0.02); NRBC Auto 0.0 /100 WBC (0.0-0.2); Platelet Count 136 K/mm3 (150-400); RDW Coefficient Variation 12.9 % (11.7-14.2); RDW Standard Deviation 42.1 fL (35.1-46.3)
[2025-03-02 04:45] LABS: Alanine Aminotransfer (ALT/SGP 28.0 U/L (12-78); Albumin, Blood 3.2 g/dL (3.4-5.0); Albumin/Globulin Ratio 0.9 (0.8-1.8); Anion Gap 9.0 mmol/L (3-11); Aspartate Aminotrans (AST/SGOT 47.0 U/L (12-37); Bilirubin, Total 1.0 mg/dL (0.1-1.0); Blood Urea Nitrogen 14.0 mg/dL (8-24); CO2, Blood 25.0 mmol/L (21-32); Calcium, Blood 8.3 mg/dL (8.5-10.1); Chloride, Blood 103.0 mmol/L (98-108); Creatinine, Blood 0.71 mg/dL (0.60-1.20); Globulin, Blood 3.4 g/dL (2.2-4.0); Glucose, Blood 171.0 mg/dL (70-99); Magnesium, Blood 2.0 mg/dL (1.6-2.4); Potassium, Blood 3.8 mmol/L (3.5-5.5); Sodium, Blood 133.0 mmol/L (136-145); Total Protein, Blood 6.6 g/dL (6.4-8.2)
[2025-03-02 07:45] VITALS: BP 133/95
[2025-03-02] MEDS ORDERED: PRASUGREL HCL10 MG PO (11:53)
[2025-03-02] MEDS ORDERED: ELIQUIS5 M2 PO (11:54)
[2025-03-02] MEDS ORDERED: ATOR80 PO (11:54)
[2025-03-02] MEDS ORDERED: SPIR25 PO (11:55)
--- NOTE | 2025-03-02 13:25 | NUR ---
DISCHARGE SUMMARY THOROUGHLY DISCUSSED DISCHARGE INSTRUCTIONS, MEDICATIONS, AND FOLLOW-UP APPOINTMENTS WITH PATIENT. ALSO DISCUSSED RETURN PRECAUTIONS. PATIENT VERBALIZES UNDERSTANDING. PATIENT IN NO DISTRESS. LS CLEAR, HR SINUS ON MONITOR. DENIES CP, SOB, NAUSEA, OR PALPITATIONS. IV'S REMOVED. PATIENT DRESSED HIMSELF INDEPENDENTLY. PATIENT WHEELED TO LOBBY BY RUMEN ENGINE ROOM HELPER AND BROTHER TO PROVIDE RIDE HOME.
== END 2025-03-02 13:36 | disposition home or self-care (01) | DRG 322 ==
LOC: ER 18:48 → PCU 23:32
PROVIDERS: Family Medicine; Internal Medicine; Internal Medicine Interventional Cardiology; Student in an Organized Health Care Education/Training Program; ADMIT Student in an Organized Health Care Education/Training Program
PROC: 027135Z Dilation of Coronary Artery, Two Arteries with Two Drug-eluting Intraluminal Devices, Percutaneous Approach (ICD-10-PCS; principal; 2025-02-27)
PROC: 5A09357 Assistance with Respiratory Ventilation, Less than 24 Consecutive Hours, Continuous Positive Airway Pressure (ICD-10-PCS; 2025-02-27)
PROC: B2111ZZ Fluoroscopy of Multiple Coronary Arteries using Low Osmolar Contrast (ICD-10-PCS; 2025-02-27)
PROC: B2131ZZ Fluoroscopy of Multiple Coronary Artery Bypass Grafts using Low Osmolar Contrast (ICD-10-PCS; 2025-02-27)
PROC: B2181ZZ Fluoroscopy of Left Internal Mammary Bypass Graft using Low Osmolar Contrast (ICD-10-PCS; 2025-02-27)
PROC: 4A033BC Measurement of Arterial Pressure, Coronary, Percutaneous Approach (ICD-10-PCS; 2025-02-27)
PROC: 5A2204Z Restoration of Cardiac Rhythm, Single (ICD-10-PCS; 2025-03-01)
DX: I21.4 Non-ST elevation (NSTEMI) myocardial infarction (principal); T82.867A Thrombosis due to cardiac prosthetic devices, implants and grafts, initial encounter; I23.7 Postinfarction angina; I50.20 Unspecified systolic (congestive) heart failure; I22.8 Subsequent ST elevation (STEMI) myocardial infarction of other sites; Y71.2 Prosthetic and other implants, materials and accessory cardiovascular devices associated with adverse incidents; I25.10 Atherosclerotic heart disease of native coronary artery without angina pectoris; I25.5 Ischemic cardiomyopathy; E11.9 Type 2 diabetes mellitus without complications; F17.200 Nicotine dependence, unspecified, uncomplicated; I11.0 Hypertensive heart disease with heart failure; E78.5 Hyperlipidemia, unspecified; I48.91 Unspecified atrial fibrillation; Z79.84 Long term (current) use of oral hypoglycemic drugs; Z79.4 Long term (current) use of insulin; Z79.1 Long term (current) use of non-steroidal anti-inflammatories (NSAID); Z79.82 Long term (current) use of aspirin; Z95.1 Presence of aortocoronary bypass graft; Z71.6 Tobacco abuse counseling
CPT/HCPCS: 36415; 71046; 76937; 80048; 80053; 82947; 83735; 84484; 85025; 85347; 85520; 85610; 85730; 93005; 93010; 93454; 93571; 94660; 94762; 96374; 96376; 99152; 99153; 99285-25; A9270; C1725; C1769; C1874; C1887; C1894; C9600; J1160; J1644; J1815; J1938; J2250; J2270; J2405; J3010; J3246; J3475; J7030; J7050; Q9967

== ENCOUNTER 2025-03-15 04:55 | Emergency (ER) | payer OTHER ==
[~2025-03-15] VITALS: Ht 190.5 cm; Wt 122.5 kg
[~2025-03-15 04:55] MED LIST changes: +ATOR80 PO; +ELIQUIS5 M2 PO; +PRASUGREL HCL10 MG PO; +SPIR25 PO
[2025-03-15 06:15] VITALS: BP 128/75
== END 2025-03-15 06:18 | disposition home or self-care (01) ==
LOC: ER 04:55
DX: R06.02 Shortness of breath (principal); I10 Essential (primary) hypertension; E78.5 Hyperlipidemia, unspecified; F17.210 Nicotine dependence, cigarettes, uncomplicated; Z79.84 Long term (current) use of oral hypoglycemic drugs; Z79.899 Other long term (current) drug therapy; Z79.82 Long term (current) use of aspirin; Z79.01 Long term (current) use of anticoagulants
CPT/HCPCS: 93005; 93010; 99283-25

== ENCOUNTER 2025-03-18 07:40 | Inpatient (IN) | payer OTHER ==
[~2025-03-18] VITALS: Ht 190.5 cm; Wt 116.4 kg
[2025-03-18 08:06] LABS: BASOPHILS ABSOLUTE AUTO 0.06 K/mm3 (0.00-0.23); BASOPHILS PERCENT AUTO 1 % (0-2); EOSINOPHILS ABSOLUTE AUTO 0.24 K/mm3 (0.00-0.68); EOSINOPHILS PERCENT AUTO 3 % (0-6); Hematocrit 48.7 % (37.0-53.0); Hemoglobin 16.9 g/dL (13.5-17.5); IMMATURE GRAN ABSOLUTE AUTO 0.02 K/mm3 (0.00-0.10); IMMATURE GRAN PERCENT AUTO 0 % (0-1); LYMPHOCYTES ABSOLUTE AUTO 1.88 K/mm3 (0.84-5.20); LYMPHOCYTES PERCENT AUTO 22 % (21-46); MONOCYTES ABSOLUTE AUTO 0.59 K/mm3 (0.16-1.47); MONOCYTES PERCENT AUTO 7 % (4-13); Mean Corpuscular HGB Conc 34.7 g/dL (31.5-36.5); Mean Corpuscular Volume 88 fL (80-100); NEUTROPHILS ABSOLUTE AUTO 5.92 K/mm3 (1.96-9.15); NEUTROPHILS PERCENT AUTO 68 % (41-73); NRBC ABSOLUTE 0.00 K/mm3 (0.00-0.02); NRBC Auto 0.0 /100 WBC (0.0-0.2); Platelet Count 142 K/mm3 (150-400); RDW Coefficient Variation 13.2 % (11.7-14.2); RDW Standard Deviation 42.5 fL (35.1-46.3)
[2025-03-18] MEDS ORDERED: Ipratropium/Albuterol SulF 2.5-0.5MG/3 ML Amp INH ONE (08:10)
[2025-03-18 08:23] LABS: Alanine Aminotransfer (ALT/SGP 37.0 U/L (12-78); Albumin, Blood 3.9 g/dL (3.4-5.0); Albumin/Globulin Ratio 1.1 (0.8-1.8); Anion Gap 11.0 mmol/L (3-11); Aspartate Aminotrans (AST/SGOT 21.0 U/L (12-37); Bilirubin, Total 1.0 mg/dL (0.1-1.0); Blood Urea Nitrogen 11.0 mg/dL (8-24); CO2, Blood 24.0 mmol/L (21-32); Calcium, Blood 8.4 mg/dL (8.5-10.1); Chloride, Blood 108.0 mmol/L (98-108); Creatinine, Blood 0.91 mg/dL (0.60-1.20); Globulin, Blood 3.6 g/dL (2.2-4.0); Glucose, Blood 175.0 mg/dL (70-99); Potassium, Blood 3.9 mmol/L (3.5-5.5); Sodium, Blood 139.0 mmol/L (136-145); Total Protein, Blood 7.5 g/dL (6.4-8.2)
[2025-03-18] MEDS ORDERED: Magnesium Sulf 2 GM/Water 50ML 50 ML IV SCH (09:10)
[2025-03-18] MEDS ORDERED: Ondansetron HCl 2 MG / ML 2ML Vial IV PRN (10:00)
[2025-03-18] MEDS ORDERED: Magnesium Hydroxide Conc 10 ML UDC PO PRN (10:00)
[2025-03-18] MEDS ORDERED: FLU VACC TS2025(65UP)/MF59C/PF 45 MCG/0.5 ML SYRINGE IM SCH (10:10)
[2025-03-18] MEDS ORDERED: NS 250 ML IV PRN (12:50)
[2025-03-18 13:03] VITALS: BP 125/83
--- NOTE | 2025-03-18 13:30 | NUR ---
ADMISSION NOTE: PATIENT ARRIVES TO ROOM VIA WC FROM ER FOR DX'S OF ACUTE EXACERBATION OF CHRONIC HEART FAILURE. PATIENT TRANSFERRED TO BED c SBA. PATIENT ORIENTATED TO ROOM AND CALL SYSTEM. PATIENT ADMISSION, MEDREC AND SKIN ASSESSMENT COMPLETED. PATIENT A/OX4, ANSWER TO QUESTIONS APPROPRIATELY AND MAKE NEEDS KNOWN. PATIENT DENIES CP/PRESSURE, SOB, N/V AND DIZZINESS. PATIENT ON TELE, NSR HR AT 79 BPM. PATIENT REPORTS "OVERALL, I'M FEELING A LOT BETTER". ADMISSION VITALS TAKEN. PATIENT HAS PIV TO L FOREARM INFUSING MAGNESIUM SULFATE. PATIENT ON CONSISTENT CARB DIET c ACCU CHECK ACHS. PATIENT PROVIDED c FRESH ICE H20. PATIENT DENIES NEED AT THIS TIME c CALL LIGHT IN REACH.
[2025-03-18] MEDS ORDERED: Albuterol 2.5 MG/3 ML VIAL INH PRN (16:10)
[2025-03-18] MEDS ORDERED: Magnesium Sulf 2 GM/Water 50ML 50 ML IV ONE (17:00)
[2025-03-18] MEDS ORDERED: Furosemide 10 MG / ML 2ML Vial IV SCH (18:00)
--- NOTE | 2025-03-18 18:26 | NUR ---
SHIFT SUMMARY: PATIENT HAS HAD NO CHANGES SINCE ADMITTED TO UNIT. PATIENT CONTINUES TO DENIES CP/PRESSURE, SOB, N/V AND DIZZINESS. PATIENT ON TELE SR HR IN THE 70'S BPM. PATIENT TROP TRENDING DOWN. SPOKE TO DR. ELLIS THIS AFTERNOON, PER DR. ELLIS IF 3RD TROPONIN LAB RESULT CONTINUES TO TREND DOWN NO MORE TROP LAB TO BE DONE. DESIGN PRINTING MACHINE SET UP OPERATOR CONSULTED, AWAITING FOR DR. CARDONA (CARDIOLOGY) TO SEE THE PATIENT. ECHO ORDERED. PATIENT RECEIVED IV MAG SULFATE (SEE EMAR). PATIENT RECEIVED SCHEDULED MEDS PER EMAR. VITAL SIGNS REVIEWED. PATIENT HAS HAD NO COMPLAINTS OR DENIES NEW CONCERN THIS SHIFT. PATIENT A/OX4, PLEASANT AND COOPERATIVE c CARE, MAKE NEEDS KNOWN. BED IN LOWEST POSITION. CALL LIGHT IN REACH.
[2025-03-18 19:17] VITALS: BP 121/77
[2025-03-18] MEDS ORDERED: Insulin Glargine 100 Unit/ML 3 ML SYR SC SCH (21:00)
[2025-03-19 01:51] VITALS: BP 97/83
[2025-03-19 02:05] LABS: BASOPHILS ABSOLUTE AUTO 0.09 K/mm3 (0.00-0.23); BASOPHILS PERCENT AUTO 1 % (0-2); EOSINOPHILS ABSOLUTE AUTO 0.39 K/mm3 (0.00-0.68); EOSINOPHILS PERCENT AUTO 4 % (0-6); Hematocrit 43.1 % (37.0-53.0); Hemoglobin 15.0 g/dL (13.5-17.5); IMMATURE GRAN ABSOLUTE AUTO 0.02 K/mm3 (0.00-0.10); IMMATURE GRAN PERCENT AUTO 0 % (0-1); LYMPHOCYTES ABSOLUTE AUTO 2.09 K/mm3 (0.84-5.20); LYMPHOCYTES PERCENT AUTO 23 % (21-46); MONOCYTES ABSOLUTE AUTO 0.73 K/mm3 (0.16-1.47); MONOCYTES PERCENT AUTO 8 % (4-13); Mean Corpuscular HGB Conc 34.8 g/dL (31.5-36.5); Mean Corpuscular Volume 87 fL (80-100); NEUTROPHILS ABSOLUTE AUTO 5.76 K/mm3 (1.96-9.15); NEUTROPHILS PERCENT AUTO 64 % (41-73); NRBC ABSOLUTE 0.00 K/mm3 (0.00-0.02); NRBC Auto 0.0 /100 WBC (0.0-0.2); Platelet Count 123 K/mm3 (150-400); RDW Coefficient Variation 13.2 % (11.7-14.2); RDW Standard Deviation 42.5 fL (35.1-46.3)
[2025-03-19 02:50] LABS: Alanine Aminotransfer (ALT/SGP 30.0 U/L (12-78); Albumin, Blood 3.5 g/dL (3.4-5.0); Albumin/Globulin Ratio 1.2 (0.8-1.8); Anion Gap 8.0 mmol/L (3-11); Aspartate Aminotrans (AST/SGOT 18.0 U/L (12-37); Bilirubin, Total 0.9 mg/dL (0.1-1.0); Blood Urea Nitrogen 12.0 mg/dL (8-24); CO2, Blood 27.0 mmol/L (21-32); Calcium, Blood 8.1 mg/dL (8.5-10.1); Chloride, Blood 108.0 mmol/L (98-108); Creatinine, Blood 0.89 mg/dL (0.60-1.20); Globulin, Blood 2.8 g/dL (2.2-4.0); Glucose, Blood 98.0 mg/dL (70-99); Magnesium, Blood 2.3 mg/dL (1.6-2.4); Potassium, Blood 3.3 mmol/L (3.5-5.5); Sodium, Blood 140.0 mmol/L (136-145); Total Protein, Blood 6.3 g/dL (6.4-8.2)
--- NOTE | 2025-03-19 04:28 | NUR ---
NO ACUTE CHANGES DURING SHUFT. PATIENT ALERT AND ORIENTED X4, ABLE TO MAKE NEEDS KNOWN. PATIENT ABLE TO TURN SELF IN BED. [facility] CAN USE URNAL ON HIS OWN. STRICT I&O'S. NO COMPLAINTS OF CHEST PAIN OR SOB. TELE IN PLACE RUNNING NSR. REDRAW MAG WAS 2.3. EHCO TO BE DONE. BED IN LOW POSITION WITH WHEELS LOCKED. CALL LIGHT WITHIN REACH.
[2025-03-19 05:15] VITALS: BP 130/85
[2025-03-19 08:18] VITALS: BP 141/81
[2025-03-19] MEDS ORDERED: Enoxaparin 40 MG/0.4 ML SYR SC SCH (09:00)
[2025-03-19] MEDS ORDERED: METFORMIN HCL500 M3 PO (10:57)
[2025-03-19 12:00] VITALS: BP 121/79
[2025-03-19 16:13] VITALS: BP 129/86
--- NOTE | 2025-03-19 17:17 | NUR ---
PATIENT HAS BEEN IND IN ROOM, USES URNIAL IND, WALKS TO BATHROOM AND AMBULATED WELL WITH PHYSICAL THERAPY TODAY. BOWEL CARE STARTED, LAST BM 03/18/25. ECHO DONE TODAY. CONSULTED WITH NEPHROLOGY ABOUT MAGNESIUM LEVELS. PATIENT DENIES NEEDS AT THIS TIME.
[2025-03-19 19:20] VITALS: BP 124/80
[2025-03-20 00:13] VITALS: BP 103/67
--- NOTE | 2025-03-20 04:57 | NUR ---
TINTER PHOTOGRAPH SUMMARY PT A&OX4, VSS. NO ACUTE CHANGES THIS SHIFT. COOPERATIVE W/ CARE. ABLE TO MAKE NEEDS KNOWN WELL. PT HAS BEEN ASLEEP FOR MOST OF THE SHIFT. CHEST RISE/RESPIRATIONS NOTED. PT HAD SLEEP STUDY DONE THIS SHIFT PER ORDERS. BED RAILS UP X 2, BED IN LOWEST POSITION, BED WHEELS LOCKED, PERSONAL BELONGINGS AND CALL LIGHT WITHIN REACH FOR SAFETY.
[2025-03-20 04:59] VITALS: BP 110/80
[2025-03-20 06:16] LABS: BASOPHILS ABSOLUTE AUTO 0.07 K/mm3 (0.00-0.23); BASOPHILS PERCENT AUTO 1 % (0-2); EOSINOPHILS ABSOLUTE AUTO 0.44 K/mm3 (0.00-0.68); EOSINOPHILS PERCENT AUTO 6 % (0-6); Hematocrit 45.0 % (37.0-53.0); Hemoglobin 15.7 g/dL (13.5-17.5); IMMATURE GRAN ABSOLUTE AUTO 0.02 K/mm3 (0.00-0.10); IMMATURE GRAN PERCENT AUTO 0 % (0-1); LYMPHOCYTES ABSOLUTE AUTO 2.07 K/mm3 (0.84-5.20); LYMPHOCYTES PERCENT AUTO 26 % (21-46); MONOCYTES ABSOLUTE AUTO 0.82 K/mm3 (0.16-1.47); MONOCYTES PERCENT AUTO 10 % (4-13); Mean Corpuscular HGB Conc 34.9 g/dL (31.5-36.5); Mean Corpuscular Volume 88 fL (80-100); NEUTROPHILS ABSOLUTE AUTO 4.56 K/mm3 (1.96-9.15); NEUTROPHILS PERCENT AUTO 57 % (41-73); NRBC ABSOLUTE 0.00 K/mm3 (0.00-0.02); NRBC Auto 0.0 /100 WBC (0.0-0.2); Platelet Count 122 K/mm3 (150-400); RDW Coefficient Variation 13.0 % (11.7-14.2); RDW Standard Deviation 41.7 fL (35.1-46.3)
[2025-03-20 06:32] LABS: Anion Gap 8.0 mmol/L (3-11); Blood Urea Nitrogen 14.0 mg/dL (8-24); CO2, Blood 24.0 mmol/L (21-32); Calcium, Blood 8.2 mg/dL (8.5-10.1); Chloride, Blood 108.0 mmol/L (98-108); Creatinine, Blood 0.92 mg/dL (0.60-1.20); Glucose, Blood 119.0 mg/dL (70-99); Magnesium, Blood 2.2 mg/dL (1.6-2.4); Potassium, Blood 4.1 mmol/L (3.5-5.5); Sodium, Blood 136.0 mmol/L (136-145)
[2025-03-20 07:20] VITALS: BP 119/80
[2025-03-20 11:14] VITALS: BP 117/81
[2025-03-20] MEDS ORDERED: FURO40 PO (14:27)
[2025-03-20] MEDS ORDERED: AMIL5 PO (14:27)
[2025-03-20] MEDS ORDERED: FAMO20 PO (14:27)
[2025-03-20] MEDS ORDERED: MAGNESIUM OXID500 MG PO (14:29)
--- NOTE | 2025-03-20 14:59 | NUR ---
DISCHARGE PATIENT EDUCATED ABOUT PLAN AND FOLLOW UP APPOINTMENTS. MEDICATIONS DISCUSSED AND REVIEWED NEW ORDERS WHICH WERE FAXED TO [facility]. PATIENT WAS WHEELED OUT BY MEDICAL STAFF TO FAMILY FRIEND WHO PROVIDED A RIDE HOME. PATIENT DENIED ADDITIONAL QUESTIONS OR CONCERNS.
== END 2025-03-20 14:45 | disposition home or self-care (01) | DRG 280 ==
LOC: ER 07:40 → MEDS 09:51 → ERHOLD 09:51 → MEDS 12:52
PROVIDERS: Family Medicine; Student in an Organized Health Care Education/Training Program; ADMIT Family Medicine
DX: I11.0 Hypertensive heart disease with heart failure (principal); I50.23 Acute on chronic systolic (congestive) heart failure; I21.4 Non-ST elevation (NSTEMI) myocardial infarction; E11.9 Type 2 diabetes mellitus without complications; E78.5 Hyperlipidemia, unspecified; I25.10 Atherosclerotic heart disease of native coronary artery without angina pectoris; I21.A1 Myocardial infarction type 2; E83.42 Hypomagnesemia; I25.5 Ischemic cardiomyopathy; I48.0 Paroxysmal atrial fibrillation; D69.6 Thrombocytopenia, unspecified; E87.6 Hypokalemia; G47.30 Sleep apnea, unspecified; Z79.01 Long term (current) use of anticoagulants; Z79.84 Long term (current) use of oral hypoglycemic drugs; Z79.82 Long term (current) use of aspirin; Z79.899 Other long term (current) drug therapy; Z95.1 Presence of aortocoronary bypass graft; Z98.890 Other specified postprocedural states; Z95.5 Presence of coronary angioplasty implant and graft; Z79.4 Long term (current) use of insulin; Z68.32 Body mass index [BMI] 32.0-32.9, adult; R06.02 Shortness of breath; I10 Essential (primary) hypertension; F17.210 Nicotine dependence, cigarettes, uncomplicated
CPT/HCPCS: 36415; 71046; 80048; 80053; 82947; 83690; 83735; 83880; 84484; 85025; 93005; 93010; 94760; 94762; 96374; 96375; 97116; 97161; 97165; 99283-25; 99285-25; A9270; C8929; J1815; J1938; J3475; J7050; Q9957

== ENCOUNTER → 2025-04-02 | Outpatient (CLI) | payer OTHER ==
[~2025-04-02] MED LIST changes: +AMIL5 PO; +FURO40 PO; +METFORMIN HCL500 M3 PO
[2025-04-02 09:34] LABS: BASOPHILS ABSOLUTE AUTO 0.05 K/mm3 (0.00-0.23); BASOPHILS PERCENT AUTO 1 % (0-2); EOSINOPHILS ABSOLUTE AUTO 0.24 K/mm3 (0.00-0.68); EOSINOPHILS PERCENT AUTO 2 % (0-6); Hematocrit 49.8 % (37.0-53.0); Hemoglobin 17.7 g/dL (13.5-17.5); IMMATURE GRAN ABSOLUTE AUTO 0.03 K/mm3 (0.00-0.10); IMMATURE GRAN PERCENT AUTO 0 % (0-1); LYMPHOCYTES ABSOLUTE AUTO 2.08 K/mm3 (0.84-5.20); LYMPHOCYTES PERCENT AUTO 21 % (21-46); MONOCYTES ABSOLUTE AUTO 0.78 K/mm3 (0.16-1.47); MONOCYTES PERCENT AUTO 8 % (4-13); Mean Corpuscular HGB Conc 35.5 g/dL (31.5-36.5); Mean Corpuscular Volume 86 fL (80-100); NEUTROPHILS ABSOLUTE AUTO 6.76 K/mm3 (1.96-9.15); NEUTROPHILS PERCENT AUTO 68 % (41-73); NRBC ABSOLUTE 0.00 K/mm3 (0.00-0.02); NRBC Auto 0.0 /100 WBC (0.0-0.2); Platelet Count 161 K/mm3 (150-400); RDW Coefficient Variation 13.0 % (11.7-14.2); RDW Standard Deviation 40.2 fL (35.1-46.3)
[2025-04-02 09:46] LABS: Alanine Aminotransfer (ALT/SGP 115.0 U/L (12-78); Albumin, Blood 3.6 g/dL (3.4-5.0); Albumin/Globulin Ratio 1.1 (0.8-1.8); Anion Gap 18.0 mmol/L (3-11); Aspartate Aminotrans (AST/SGOT 52.0 U/L (12-37); Bilirubin, Total 0.8 mg/dL (0.1-1.0); Blood Urea Nitrogen 24.0 mg/dL (8-24); CO2, Blood 21.0 mmol/L (21-32); Calcium, Blood 9.4 mg/dL (8.5-10.1); Chloride, Blood 101.0 mmol/L (98-108); Creatinine, Blood 1.44 mg/dL (0.60-1.20); Globulin, Blood 3.4 g/dL (2.2-4.0); Glucose, Blood 172.0 mg/dL (70-99); Magnesium, Blood 2.1 mg/dL (1.6-2.4); Potassium, Blood 4.3 mmol/L (3.5-5.5); Sodium, Blood 136.0 mmol/L (136-145); Total Protein, Blood 7.0 g/dL (6.4-8.2)
== END ==
LOC: LAB 09:31 → LAB SHORT 09:31
PROVIDERS: Physician Assistant Medical
DX: R07.9 Chest pain, unspecified (principal)
CPT/HCPCS: 80053; 83735; 83880; 84484; 85025